=== PATIENT | female | born 1955 | race Caucasian/White ===

== ENCOUNTER → 2022-06-30 | Outpatient (CLI) | payer BC, MEDICARE ==
[2022-06-30 14:33] LABS: URIC ACID 9.6 MG/DL (3.1-7.8)
[2022-06-30 14:36] LABS: CALCIUM LEVEL 12.5 MG/DL (8.3-10.6); PHOSPHORUS LEVEL 2.6 MG/DL (2.4-5.1); PTH INTACT 459.9 PG/ML (18.5-88.0)
== END ==
LOC: M PLALAB 11:11
PROVIDERS: ATTEND Internal Medicine Endocrinology, Diabetes & Metabolism
DX: M10.00 Idiopathic gout, unspecified site (principal); E21.0 Primary hyperparathyroidism

== ENCOUNTER → 2022-09-13 | Outpatient (CLI) | payer MEDICARE | LOC: M RAD 09:09 | PROVIDERS: ATTEND Internal Medicine Endocrinology, Diabetes & Metabolism | DX: E21.0 Primary hyperparathyroidism (principal) | CPT/HCPCS: 78070; 78803; A9500 ==

== ENCOUNTER → 2024-09-24 | Outpatient (CLI) | payer MEDICARE, BC | LOC: M RAD 12:29 | PROVIDERS: ATTEND Internal Medicine Nephrology | DX: R93.421 Abnormal radiologic findings on diagnostic imaging of right kidney (principal); R93.422 Abnormal radiologic findings on diagnostic imaging of left kidney; N18.4 Chronic kidney disease, stage 4 (severe) ==